=== PATIENT | male | born 1975 | race Caucasian/White ===

== ENCOUNTER → 2017-06-02 | Emergency (ER) | payer MEDICAID ==
[~2017-06-02] VITALS: Ht 185.4 cm; Wt 80.0 kg
[~2017-06-02] MED LIST: BACDS PO; CLIN-80 PO; IBUP-1986 PO; TRAM50TA2 PO; azithromycin 250mg tablet PO ONE; doxycycline hyclate 100mg tablet.DR PO ONE; gentamicin 40 MG/1 ML inj IM ONE; gentamicin 40 MG/1 ML inj IV ONE; gentamicin inj 250 MG in normal saline 100ml IV soln 100 ML IM STA
[2017-06-02 07:29] LABS: CLARITY,URINE Clear (Clear); COLOR,URINE Yellow (Yellow); GLUCOSE, URINE Negative (Neg); KETONES,URINE Negative (Neg); LEUKOCYTE ESTERASE ,URINE Small (Neg); NITRITES, URINE Negative (Neg); OCCULT BLOOD,URINE Negative (Neg); PROTEIN,URINE Negative (Neg)
[2017-06-02 07:30] LABS: UA COLLECTION TYPE CLN CATCH MIDSTREAM
[2017-06-02 07:41] LABS: BACTERIA,URINE NONE SEEN /HPF (Neg); MUCUS STRANDS NONE SEEN /LPF (Neg); RBC,URINE NONE SEEN /HPF (0-2); SQUAMOUS EPITHELIAL CELL,UR NONE SEEN /LPF (FEW); WBC,URINE 0-4 /HPF (0-4)
[2017-06-02 08:56] VITALS: BP 123/77
== END | disposition home or self-care (01) ==
LOC: ER 06:46
DX: A64 Unspecified sexually transmitted disease (principal); F12.10 Cannabis abuse, uncomplicated; F15.10 Other stimulant abuse, uncomplicated; F11.10 Opioid abuse, uncomplicated; Z98.890 Other specified postprocedural states; Z59.0 Homelessness; Z87.01 Personal history of pneumonia (recurrent); Z88.1 Allergy status to other antibiotic agents
CPT/HCPCS: 36415; 81001; 87088; 87491; 87591; 96372; 99284; J1580

== ENCOUNTER 2018-03-08 05:57 | Emergency (ER) | payer MEDICAID ==
[~2018-03-08] VITALS: Ht 185.4 cm; Wt 60.5 kg
[~2018-03-08 05:57] MED LIST changes: -CLIN-80 PO; +CLIN300C85 PO; -azithromycin 250mg tablet PO ONE; -doxycycline hyclate 100mg tablet.DR PO ONE; -gentamicin 40 MG/1 ML inj IM ONE; -gentamicin 40 MG/1 ML inj IV ONE; -gentamicin inj 250 MG in normal saline 100ml IV soln 100 ML IM STA
[2018-03-08 06:01] VITALS: BP 124/73
[2018-03-08] MEDS ORDERED: magnesium citrate 296ml oral solution PO ONE (06:30)
== END 2018-03-08 06:51 | disposition home or self-care (01) ==
LOC: ER 05:58
DX: D17.0 Benign lipomatous neoplasm of skin and subcutaneous tissue of head, face and neck (principal); F12.90 Cannabis use, unspecified, uncomplicated; F15.90 Other stimulant use, unspecified, uncomplicated; F11.90 Opioid use, unspecified, uncomplicated; F17.210 Nicotine dependence, cigarettes, uncomplicated; Z59.0 Homelessness; Z98.890 Other specified postprocedural states; Z88.1 Allergy status to other antibiotic agents
CPT/HCPCS: 99281

== ENCOUNTER 2018-03-15 19:46 | Emergency (ER) | payer MEDICAID ==
[~2018-03-15] VITALS: Ht 182.9 cm; Wt 76.4 kg
[2018-03-15 20:55] VITALS: BP 131/74
[2018-03-15] MEDS ORDERED: HYDR-4383 PO (23:54)
[2018-03-15] MEDS ORDERED: AMOX-419 PO (23:54)
== END 2018-03-16 00:02 | disposition home or self-care (01) ==
LOC: ER 19:47
DX: S02.40FA Zygomatic fracture, left side, initial encounter for closed fracture (principal); S02.32XA Fracture of orbital floor, left side, initial encounter for closed fracture; F17.200 Nicotine dependence, unspecified, uncomplicated; F12.10 Cannabis abuse, uncomplicated; F15.10 Other stimulant abuse, uncomplicated; F11.10 Opioid abuse, uncomplicated; Z88.1 Allergy status to other antibiotic agents; W50.1XXA Accidental kick by another person, initial encounter; Y93.71 Activity, boxing; Y92.89 Other specified places as the place of occurrence of the external cause; Y99.8 Other external cause status
CPT/HCPCS: 70486; 99284

== ENCOUNTER 2020-04-21 12:59 | Emergency (ER) | payer MEDICAID ==
[~2020-04-21] VITALS: Ht 182.9 cm; Wt 78.5 kg
[~2020-04-21 12:59] MED LIST changes: +CLIN-97 PO; -CLIN300C85 PO; +HYDR-4383 PO
[2020-04-21 13:16] VITALS: BP 131/72
[2020-04-21 13:42] LABS: CLARITY,URINE CLOUDY (Clear); COLOR,URINE YELLOW (Yellow); GLUCOSE, URINE NEGATIVE (Neg); KETONES,URINE NEGATIVE (Neg); LEUKOCYTE ESTERASE ,URINE NEGATIVE (Neg); NITRITES, URINE NEGATIVE (Neg); OCCULT BLOOD,URINE NEGATIVE (Neg); PROTEIN,URINE TRACE mg/dl (Neg)
[2020-04-21 13:44] LABS: UA COLLECTION TYPE CLN CATCH MIDSTREAM
[2020-04-21 13:51] LABS: SPERM MODERATE /HPF (NEGATIVE)
[2020-04-21 13:52] LABS: MUCUS STRANDS MANY /LPF (Neg); SQUAMOUS EPITHELIAL CELL,UR FEW /LPF (FEW)
[2020-04-21 13:54] LABS: BACTERIA,URINE NONE SEEN /HPF (Neg); RBC,URINE NONE SEEN /HPF (0-2); WBC,URINE 0-4 /HPF (0-4)
[2020-04-21] MEDS ORDERED: NORMAL SALINE IV STA (15:12)
[2020-04-21] MEDS ORDERED: GENTAMICIN IV STA (15:12)
[2020-04-21] MEDS ORDERED: azithromycin 250mg tablet PO ONE (15:15)
[2020-04-21] MEDS ORDERED: gentamicin 40 MG/1 ML inj IM ONE ×2 (15:25)
[2020-04-21] MEDS ORDERED: gentamicin 40 MG/1 ML inj IV ONE ×2 (15:25)
== END 2020-04-21 16:24 | disposition home or self-care (01) ==
LOC: ER 13:00
DX: A64 Unspecified sexually transmitted disease (principal); Z87.01 Personal history of pneumonia (recurrent); Z87.81 Personal history of (healed) traumatic fracture; F12.90 Cannabis use, unspecified, uncomplicated; F15.90 Other stimulant use, unspecified, uncomplicated; F11.90 Opioid use, unspecified, uncomplicated; Z59.0 Homelessness; Z98.890 Other specified postprocedural states; Z88.1 Allergy status to other antibiotic agents; Z79.2 Long term (current) use of antibiotics; Z79.899 Other long term (current) drug therapy
CPT/HCPCS: 36415; 81001; 87491; 87591; 96372; 99284; J1580

== ENCOUNTER 2020-05-13 00:58 | Emergency (ER) | payer MEDICAID ==
[~2020-05-13] VITALS: Ht 182.9 cm; Wt 86.4 kg
[2020-05-13 01:10] VITALS: BP 134/74
[2020-05-13 01:30] LABS: CLARITY,URINE CLEAR (Clear); COLOR,URINE YELLOW (Yellow); GLUCOSE, URINE NEGATIVE (Neg); KETONES,URINE NEGATIVE (Neg); LEUKOCYTE ESTERASE ,URINE NEGATIVE (Neg); NITRITES, URINE NEGATIVE (Neg); OCCULT BLOOD,URINE NEGATIVE (Neg); PROTEIN,URINE TRACE mg/dl (Neg)
[2020-05-13 01:31] LABS: UA COLLECTION TYPE NON-SPECIFIED
[2020-05-13 01:38] LABS: BACTERIA,URINE FEW /HPF (Neg); RBC,URINE 0-2 /HPF (0-2); WBC,URINE 0-4 /HPF (0-4)
[2020-05-13 01:39] LABS: MUCUS STRANDS MODERATE /LPF (Neg); SPERM FEW /HPF (NEGATIVE); SQUAMOUS EPITHELIAL CELL,UR MODERATE /LPF (FEW)
== END 2020-05-13 02:19 | disposition home or self-care (01) ==
LOC: ER 00:59
DX: R31.9 Hematuria, unspecified (principal); Z13.89 Encounter for screening for other disorder; G43.909 Migraine, unspecified, not intractable, without status migrainosus; F11.90 Opioid use, unspecified, uncomplicated; F17.200 Nicotine dependence, unspecified, uncomplicated; Z87.81 Personal history of (healed) traumatic fracture; Z86.2 Personal history of diseases of the blood and blood-forming organs and certain disorders involving the immune mechanism; Z98.890 Other specified postprocedural states; Z59.0 Homelessness; Z72.89 Other problems related to lifestyle; Z88.1 Allergy status to other antibiotic agents; Z79.2 Long term (current) use of antibiotics; Z79.899 Other long term (current) drug therapy; Z87.01 Personal history of pneumonia (recurrent)
CPT/HCPCS: 76857; 81001; 99284

== ENCOUNTER 2020-05-16 14:09 | Emergency (ER) | payer MEDICAID ==
[~2020-05-16] VITALS: Ht 182.9 cm; Wt 86.4 kg
[2020-05-16 15:07] VITALS: BP 111/63
== END 2020-05-16 17:13 | disposition left against medical advice (07) ==
LOC: ER 14:11
DX: M79.672 Pain in left foot (principal); M79.671 Pain in right foot; Z53.21 Procedure and treatment not carried out due to patient leaving prior to being seen by health care provider

== ENCOUNTER 2020-05-24 05:34 | Emergency (ER) | payer MEDICAID ==
[~2020-05-24] VITALS: Ht 182.9 cm; Wt 86.4 kg
[2020-05-24 05:34] VITALS: BP 154/87
[2020-05-24] MEDS ORDERED: DOXY100C43 PO (06:19)
== END 2020-05-24 06:56 | disposition home or self-care (01) ==
LOC: ER 05:34
DX: L03.116 Cellulitis of left lower limb (principal); F15.90 Other stimulant use, unspecified, uncomplicated; Z87.01 Personal history of pneumonia (recurrent); Z87.81 Personal history of (healed) traumatic fracture; Z79.899 Other long term (current) drug therapy; Z98.890 Other specified postprocedural states; Z59.0 Homelessness; Z88.1 Allergy status to other antibiotic agents; Z79.2 Long term (current) use of antibiotics
CPT/HCPCS: 10160; 99283; 99284

== ENCOUNTER 2020-07-24 05:22 | Emergency (ER) | payer MEDICAID ==
[~2020-07-24] VITALS: Ht 185.4 cm; Wt 77.3 kg
[2020-07-24 05:41] VITALS: BP 125/69
== END 2020-07-24 09:03 | disposition left against medical advice (07) ==
LOC: ER 05:23
DX: J02.9 Acute pharyngitis, unspecified (principal); Z53.21 Procedure and treatment not carried out due to patient leaving prior to being seen by health care provider
CPT/HCPCS: 87081; 87880

== ENCOUNTER 2020-07-28 17:12 | Emergency (ER) | payer MEDICAID ==
[~2020-07-28] VITALS: Ht 185.4 cm; Wt 69.3 kg
[2020-07-28 17:26] VITALS: BP 145/69
[2020-07-28] MEDS ORDERED: IBUP-1984 PO (19:00)
== END 2020-07-28 19:43 | disposition home or self-care (01) ==
LOC: ER 17:13
DX: T80.89XA Other complications following infusion, transfusion and therapeutic injection, initial encounter (principal); F15.90 Other stimulant use, unspecified, uncomplicated; Z87.01 Personal history of pneumonia (recurrent); Z87.81 Personal history of (healed) traumatic fracture; Z59.0 Homelessness; Z98.890 Other specified postprocedural states; Z88.1 Allergy status to other antibiotic agents; Z79.2 Long term (current) use of antibiotics; Z79.899 Other long term (current) drug therapy
CPT/HCPCS: 99282

== ENCOUNTER 2021-02-20 02:27 | Emergency (ER) | payer MEDICAID ==
[~2021-02-20] VITALS: Ht 188 cm; Wt 77.3 kg
[2021-02-20] MEDS ORDERED: DOXYCYCLINE 100MG CAPSULE PO STA (03:14)
[2021-02-20] MEDS ORDERED: CEFTRIAXONE 500 MG VIAL IM ONE (03:15)
[2021-02-20] MEDS ORDERED: gentamicin inj 250 MG in normal saline 100ml IV soln 100 ML IM STA (03:16)
[2021-02-20] MEDS ORDERED: azithromycin 250mg tablet PO ONE (03:20)
[2021-02-20] MEDS ORDERED: gentamicin 40 MG/1 ML inj IM ONE (03:35)
[2021-02-20 05:14] VITALS: BP 135/86
== END 2021-02-20 05:19 | disposition home or self-care (01) ==
LOC: ER 02:28
DX: Z20.2 Contact with and (suspected) exposure to infections with a predominantly sexual mode of transmission (principal); N50.89 Other specified disorders of the male genital organs; F15.90 Other stimulant use, unspecified, uncomplicated; Z87.01 Personal history of pneumonia (recurrent); Z98.890 Other specified postprocedural states; Z59.00 Homelessness unspecified; Z88.1 Allergy status to other antibiotic agents; Z79.2 Long term (current) use of antibiotics; Z79.899 Other long term (current) drug therapy
CPT/HCPCS: 73110; 96372; 99283; J1580

== ENCOUNTER 2021-04-04 22:18 | Emergency (ER) | payer MEDICAID ==
[~2021-04-04] VITALS: Ht 182.9 cm; Wt 75.0 kg
[2021-04-04 22:21] VITALS: BP 161/93
== END 2021-04-05 04:17 | disposition left against medical advice (07) ==
LOC: ER 22:19
DX: M79.604 Pain in right leg (principal); Z53.21 Procedure and treatment not carried out due to patient leaving prior to being seen by health care provider

== ENCOUNTER 2021-04-23 23:54 | Emergency (ER) | payer MEDICAID ==
[~2021-04-23] VITALS: Ht 182.9 cm; Wt 74.0 kg
[2021-04-23 23:58] VITALS: BP 143/89
[2021-04-24] MEDS ORDERED: DOXYCYCLINE 100MG CAPSULE PO STA (01:15)
[2021-04-24] MEDS ORDERED: DOXY-1 PO (01:24)
== END 2021-04-24 01:30 | disposition home or self-care (01) ==
LOC: ER 23:55
DX: A53.9 Syphilis, unspecified (principal); L73.1 Pseudofolliculitis barbae; F15.90 Other stimulant use, unspecified, uncomplicated; Z87.01 Personal history of pneumonia (recurrent); Z98.890 Other specified postprocedural states; Z59.00 Homelessness unspecified; Z88.1 Allergy status to other antibiotic agents; Z79.2 Long term (current) use of antibiotics; Z79.899 Other long term (current) drug therapy
CPT/HCPCS: 99283

== ENCOUNTER 2021-08-13 09:13 | Emergency (ER) | payer MEDICAID ==
[~2021-08-13] VITALS: Ht 185.4 cm; Wt 77.3 kg
[2021-08-13 09:22] VITALS: BP 136/86
== END 2021-08-13 09:30 | disposition home or self-care (01) ==
LOC: ER 09:14
DX: D17.22 Benign lipomatous neoplasm of skin and subcutaneous tissue of left arm (principal); Z87.81 Personal history of (healed) traumatic fracture; Z88.1 Allergy status to other antibiotic agents; Z79.899 Other long term (current) drug therapy
CPT/HCPCS: 99282

== ENCOUNTER 2021-09-25 02:35 | Emergency (ER) | payer MEDICAID | END 2021-09-25 07:04 | disposition left against medical advice (07) | LOC: ER 04:06 | DX: R10.9 Unspecified abdominal pain (principal); Z53.21 Procedure and treatment not carried out due to patient leaving prior to being seen by health care provider ==

== ENCOUNTER 2021-10-05 02:30 | Emergency (ER) | payer MEDICAID ==
[~2021-10-05] VITALS: Ht 182.9 cm; Wt 62.0 kg
[2021-10-05 02:34] VITALS: BP 142/94
[2021-10-05] MEDS ORDERED: DOXY100T56 PO (04:34)
== END 2021-10-05 04:39 | disposition home or self-care (01) ==
LOC: ER 02:31
DX: Z11.3 Encounter for screening for infections with a predominantly sexual mode of transmission (principal); F15.20 Other stimulant dependence, uncomplicated; Z88.1 Allergy status to other antibiotic agents; Z59.00 Homelessness unspecified
CPT/HCPCS: 99283

== ENCOUNTER 2022-01-19 11:05 | Emergency (ER) | payer MEDICAID ==
[~2022-01-19] VITALS: Ht 182.9 cm; Wt 72.0 kg
[2022-01-19 11:26] VITALS: BP 127/87
[2022-01-19 11:54] LABS: BASOPHILS % (AUTO) 0.4 % (0-1); EOSINOPHILS % (AUTO) 0.4 % (0-6); HEMATOCRIT 38.3 % (42.0-52.0); HEMOGLOBIN 13.1 g/dl (14.0-17.9); LYMPHOCYTES # (AUTO) 0.8 X10'3 (1.1-4.8); MEAN CORPUSCULAR HEMOGLOBIN 29.5 PG (27.0-31.0); MEAN CORPUSCULAR HGB CONC 34.2 g/dL (33.0-36.5); MEAN CORPUSCULAR VOLUME 86.2 FL (78-98); MEAN PLATELET VOLUME 6.7 FL (7.4-10.4); MONOCYTES # (AUTO) 1.1 X10'3 (0-0.9); MONOCYTES % (AUTO) 18.8 % (2-12); NEUTROPHILS # (AUTO) 3.8 X10'3 (1.8-7.7); NEUTROPHILS % (AUTO) 66.4 % (42-75); PLATELET COUNT 268 X10'3 (140-440); RED BLOOD COUNT 4.44 X10'6 (4.70-6.10); RED CELL DISTRIBUTION WIDTH 13.1 % (11.5-14.5); WHITE BLOOD COUNT 5.8 X10'3 (4.5-11.0)
[2022-01-19 12:14] LABS: ALANINE AMINOTRANSFERASE 21 U/L (12-78); ALBUMIN 3.5 G/DL (3.4-5.0); ALKALINE PHOSPHATASE 68 IU/L (46-116); ANION GAP 7 (8-16); ASPARTATE AMINO TRANSFERASE 19 U/L (10-37); BILIRUBIN,TOTAL 0.4 MG/DL (0.1-1.0); BLOOD UREA NITROGEN 16 MG/DL (7-18); BUN/CREATININE RATIO 15.2 (5.4-32.0); CALCIUM 8.4 MG/DL (8.5-10.1); CHLORIDE 101 MMOL/L (99-107); CREATININE 1.05 MG/DL (0.60-1.10); GLUCOSE 109 MG/DL (70-104); LIPASE 128 U/L (73-393); POTASSIUM 3.9 MMOL/L (3.5-5.1); SODIUM 137 MMOL/L (135-145); TOTAL CARBON DIOXIDE 29.4 MMOL/L (24-32); TOTAL PROTEIN 7.1 G/DL (6.4-8.2); eGFR 76 ML/MIN
[2022-01-19] MEDS ORDERED: ibuprofen tablet 400 MG TABLET PO ONE (14:10)
[2022-01-19] MEDS ORDERED: acetaminophen 325mg tablet PO ONE (14:10)
[2022-01-19 14:14] LABS: CLARITY,URINE CLEAR (Clear); COLOR,URINE YELLOW (Yellow); GLUCOSE, URINE NEGATIVE (Neg); KETONES,URINE NEGATIVE (Neg); LEUKOCYTE ESTERASE ,URINE NEGATIVE (Neg); NITRITES, URINE NEGATIVE (Neg); OCCULT BLOOD,URINE NEGATIVE (Neg); PH,URINE 5.5 (4.8-8.0); PROTEIN,URINE NEGATIVE (Neg); UROBILINOGEN,URINE 0.2 E.U/dL (0.2-1.0)
[2022-01-19] MEDS ORDERED: ibuprofen 200mg tablet PO ONE (14:21)
[2022-01-19 14:23] LABS: UA COLLECTION TYPE VOIDED
[2022-01-19 15:43] LABS: TOTAL CELLS COUNTED 100
[2022-01-19 15:44] LABS: PLATELET ESTIMATE NORMAL
== END 2022-01-19 15:02 | disposition home or self-care (01) ==
LOC: ER 11:06
DX: R10.9 Unspecified abdominal pain (principal); M54.9 Dorsalgia, unspecified; Z87.81 Personal history of (healed) traumatic fracture; F15.10 Other stimulant abuse, uncomplicated; Z56.0 Unemployment, unspecified; Z88.1 Allergy status to other antibiotic agents; Z79.899 Other long term (current) drug therapy; Z79.2 Long term (current) use of antibiotics
CPT/HCPCS: 36415; 80053; 81003; 83690; 85007; 85025; 99283

== ENCOUNTER 2022-02-05 08:23 | Emergency (ER) | payer MEDICAID ==
[~2022-02-05] VITALS: Ht 185.4 cm; Wt 74.1 kg
[2022-02-05 10:19] VITALS: BP 132/75
[2022-02-05] MEDS ORDERED: LIDOcaine 5% patch TP STA (10:31)
[2022-02-05] MEDS ORDERED: DEXAMETHASONE 6 MG TABLET PO STA (10:31)
[2022-02-05] MEDS ORDERED: CYCL-1 PO (10:37)
[2022-02-05] MEDS ORDERED: DEXA4TAB PO (10:37)
== END 2022-02-05 11:00 | disposition home or self-care (01) ==
LOC: ER 08:23
DX: M54.42 Lumbago with sciatica, left side (principal); F15.10 Other stimulant abuse, uncomplicated; Z59.00 Homelessness unspecified; Z87.81 Personal history of (healed) traumatic fracture; Z88.1 Allergy status to other antibiotic agents; Z79.899 Other long term (current) drug therapy
CPT/HCPCS: 99283; J8540

== ENCOUNTER 2022-03-14 15:00 | Emergency (ER) | payer MEDICAID ==
[~2022-03-14] VITALS: Ht 185.4 cm; Wt 77.3 kg
[~2022-03-14 15:00] MED LIST changes: +CYCL-1 PO; +DEXA4TAB PO
[2022-03-14 15:24] VITALS: BP 105/58
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
== END 2022-03-14 17:19 | disposition left against medical advice (07) ==
LOC: ER 15:01
DX: M54.9 Dorsalgia, unspecified (principal); Z53.21 Procedure and treatment not carried out due to patient leaving prior to being seen by health care provider

== ENCOUNTER 2022-06-15 07:11 | Emergency (ER) | payer MEDICAID ==
[~2022-06-15] VITALS: Ht 182.9 cm; Wt 77.3 kg
[2022-06-15] MEDS ORDERED: ketorolac trometh inj. 60 MG/2 ML VIAL IM ONE (08:00)
[2022-06-15] MEDS ORDERED: CYCL-1 PO (08:02)
[2022-06-15 08:43] VITALS: BP 146/75
== END 2022-06-15 08:45 | disposition home or self-care (01) ==
LOC: ER 07:12
DX: S46.811A Strain of other muscles, fascia and tendons at shoulder and upper arm level, right arm, initial encounter (principal); F15.10 Other stimulant abuse, uncomplicated; Z87.81 Personal history of (healed) traumatic fracture; Z59.00 Homelessness unspecified; Z88.1 Allergy status to other antibiotic agents; Z79.899 Other long term (current) drug therapy; Z79.1 Long term (current) use of non-steroidal anti-inflammatories (NSAID); Z79.2 Long term (current) use of antibiotics
CPT/HCPCS: 96372; 99283; J1885

== ENCOUNTER 2022-11-22 15:27 | Emergency (ER) | payer MEDICAID ==
[~2022-11-22] VITALS: Ht 183.5 cm; Wt 72.7 kg
[2022-11-22 16:30] LABS: BILIRUBIN,URINE NEGATIVE (Neg); COLOR,URINE YELLOW (Yellow); GLUCOSE, URINE NEGATIVE (Neg); KETONES,URINE NEGATIVE (Neg); LEUKOCYTE ESTERASE ,URINE TRACE (Neg); NITRITES, URINE NEGATIVE (Neg); OCCULT BLOOD,URINE TRACE-INTACT (Neg); PH,URINE 6.5 (4.8-8.0); PROTEIN,URINE 30 mg/dl (Neg)
[2022-11-22 16:32] LABS: UA COLLECTION TYPE CLN CATCH MIDSTREAM
[2022-11-22 16:37] LABS: WBC CLUMPS,URINE FEW /HPF (NEGATIVE); WBC,URINE 30-50 /HPF (0-4)
[2022-11-22 16:38] LABS: AMORPHOUS URATES 1+; BACTERIA,URINE 3+ /HPF (Neg); CLARITY,URINE SLIGHTLY CLOUDY (Clear); SQUAMOUS EPITHELIAL CELL,UR FEW /LPF (FEW)
[2022-11-22 16:39] LABS: MUCUS STRANDS FEW /LPF (Neg)
[2022-11-22 17:58] VITALS: BP 135/92; PULSE 93; RESP 15; O2SAT 100
[2022-11-22] MEDS ORDERED: DOXY-1 PO (18:32)
[2022-11-22] MEDS ORDERED: NAPR-56 PO (18:32)
[2022-11-22 18:48] VITALS: TEMP 98.1
== END 2022-11-22 18:51 | disposition home or self-care (01) ==
LOC: ER 15:27
DX: A54.9 Gonococcal infection, unspecified (principal); F15.90 Other stimulant use, unspecified, uncomplicated; Z59.00 Homelessness unspecified; Z87.81 Personal history of (healed) traumatic fracture; Z98.890 Other specified postprocedural states; Z79.2 Long term (current) use of antibiotics; Z79.899 Other long term (current) drug therapy; Z88.1 Allergy status to other antibiotic agents
CPT/HCPCS: 81001; 87088; 99283

== ENCOUNTER 2023-08-30 04:21 | Emergency (ER) | payer MEDICAID ==
[~2023-08-30] VITALS: Ht 185.4 cm; Wt 75.1 kg
[2023-08-30 04:23] VITALS: BP 125/72; PULSE 98; RESP 16; TEMP 98.1; O2SAT 99
[2023-08-30] MEDS ORDERED: NYST15PO4 TOP (04:36)
[2023-08-30] MEDS: ibuprofen tablet 400 MG TABLET PO ONE (04:42)
[2023-08-30] MEDS: acetaminophen 325mg tablet PO ONE (04:42)
== END 2023-08-30 04:48 | disposition home or self-care (01) ==
LOC: ER 04:22
DX: M79.672 Pain in left foot (principal); M79.671 Pain in right foot; F15.90 Other stimulant use, unspecified, uncomplicated; Z59.00 Homelessness unspecified; Z98.890 Other specified postprocedural states; Z79.899 Other long term (current) drug therapy; Z79.2 Long term (current) use of antibiotics; Z88.1 Allergy status to other antibiotic agents
CPT/HCPCS: 99283

== ENCOUNTER 2023-09-28 06:43 | Emergency (ER) | payer MEDICAID ==
[~2023-09-28] VITALS: Ht 182.9 cm; Wt 70.0 kg
[~2023-09-28 06:43] MED LIST changes: +NYST15PO4 TOP
[2023-09-28] MEDS ORDERED: DOXY-460 PO (10:10)
[2023-09-28] MEDS: LIDOcaine 1% 30ml preserv. free vial SQ STA (10:50)
[2023-09-28 11:35] VITALS: BP 130/75; PULSE 74; RESP 16; TEMP 98; O2SAT 98
== END 2023-09-28 11:37 | disposition home or self-care (01) ==
LOC: ER 06:43
DX: S02.85XA Fracture of orbit, unspecified, initial encounter for closed fracture (principal); S01.111A Laceration without foreign body of right eyelid and periocular area, initial encounter; F15.90 Other stimulant use, unspecified, uncomplicated; Z88.1 Allergy status to other antibiotic agents; Z79.2 Long term (current) use of antibiotics; Z79.1 Long term (current) use of non-steroidal anti-inflammatories (NSAID); Z79.899 Other long term (current) drug therapy; Z98.890 Other specified postprocedural states; Z59.00 Homelessness unspecified; V19.9XXA Pedal cyclist (driver) (passenger) injured in unspecified traffic accident, initial encounter; Y93.89 Activity, other specified; Y92.89 Other specified places as the place of occurrence of the external cause; Y99.8 Other external cause status
CPT/HCPCS: 12011; 70450; 99284; J7030; A6449

== ENCOUNTER 2023-11-27 16:47 | Emergency (ER) | payer MEDICAID ==
[~2023-11-27] VITALS: Ht 182.9 cm; Wt 71.4 kg
[2023-11-27] MEDS ORDERED: gabapentin 400mg capsule PO STA (17:22)
[2023-11-27] MEDS ORDERED: GABA400C PO (17:26)
[2023-11-27] MEDS: gabapentin 400mg capsule PO STA (17:42)
[2023-11-27 17:45] VITALS: BP 119/72; PULSE 99; RESP 17; TEMP 98.6; O2SAT 99
== END 2023-11-27 17:46 | disposition home or self-care (01) ==
LOC: ER 16:48
DX: R51.9 Headache, unspecified (principal); H57.11 Ocular pain, right eye; F15.90 Other stimulant use, unspecified, uncomplicated; Z98.890 Other specified postprocedural states; Z59.00 Homelessness unspecified; Z88.1 Allergy status to other antibiotic agents; Z79.1 Long term (current) use of non-steroidal anti-inflammatories (NSAID)
CPT/HCPCS: 99283